=== PATIENT | female | born 1960 | race Caucasian/White ===

== ENCOUNTER 2023-12-29 07:20 | Day surgery (SDC) | payer OTHER ==
[~2023-12-29] VITALS: Ht 162.6 cm; Wt 45.9 kg
[2023-12-29] MEDS ORDERED: FentaNYL CITRATE PF 100 MCG/2 ML VIAL ONE (07:55)
[2023-12-29] MEDS ORDERED: MIDAZOLAM HCL 2 MG/2 ML VIAL ONE (07:56)
[2023-12-29] MEDS: SODIUM CHLORIDE 0.9% 1,000 ML IV ONE (08:21)
[2023-12-29] MEDS ORDERED: FAMO20 PO (08:35)
[2023-12-29] MEDS ORDERED: LINA5TAB PO (08:35)
[2023-12-29] MEDS ORDERED: OMEP20 PO (08:35)
[2023-12-29] MEDS ORDERED: DUPI200S SQ (08:35)
[2023-12-29] MEDS ORDERED: FLUT12AE3 IH (08:35)
[2023-12-29 08:45] LABS: GLUCOMETER DEV NAME(LOC) SDS.; GLUCOSE,POINT OF CARE 82 MG/DL (70-110)
[2023-12-29 09:49] VITALS: PULSE 81; RESP 20; O2SAT 100
[2023-12-29] MEDS ORDERED: MethylPREDNISolone SOD SUCC 125 MG/2 ML VIAL ONE (10:19)
[2023-12-29] MEDS: MethylPREDNISolone SOD SUCC 125 MG/2 ML VIAL IVP ONE (10:40)
[2023-12-29] MEDS: PROMETHAZINE HCL 6.25 MG/5 ML SOLUTION ORAL.SYG PO ONE (10:40)
== END 2023-12-29 12:02 | disposition home or self-care (01) ==
LOC: SURGERY 07:20
PROVIDERS: ATTEND Internal Medicine Critical Care Medicine
DX: R05.3 Chronic cough (principal); J38.4 Edema of larynx; B37.0 Candidal stomatitis; R04.2 Hemoptysis; R06.2 Wheezing; J98.09 Other diseases of bronchus, not elsewhere classified; J84.10 Pulmonary fibrosis, unspecified; J98.8 Other specified respiratory disorders; E11.9 Type 2 diabetes mellitus without complications; R91.8 Other nonspecific abnormal finding of lung field; Z85.21 Personal history of malignant neoplasm of larynx
CPT/HCPCS: 31623; 82962; 87206; 87101; 87220; 87070; 88108; 31624; 94640; 71045; 87015; J3010; J2250; J2919